=== PATIENT | female | born 1985 | race Caucasian/White ===

== ENCOUNTER 2017-05-02 22:50 | Inpatient (IN) | payer BC, OTHER, SELFPAY ==
[2017-05-02 23:38] VITALS: BMI 33.3
--- NOTE | 2017-05-02 23:56 | PDOC.EVN ---
Event Note - Event Note Event Note: Patient is a 32 YO at 34 weeks and [address] Choe for care, presents for BP checks. Took BP at home and it was ""160/100".Good FM, had AVERY earlier. HX anxiety and took zanax prior to L&D arrival. No visual changes, no RUQ pain. No CTX, no LOF. Review of systems: done and negative. Surgeries: knee Past Med Hx: IBS, anxiety surgery Ob HX: Hx PIH last Allergies: Iodine Physical: BP 151/90, 145/82 NAD Abd soft Cervix deferred Monitor: Cat 1, no ctx Assessment: Possible PIH at 34 weeks, Hx anxiety Plan: 1. serial BPs 2. NST 3. CMP, CBC, urine protein/cr ratio 4. If non-severe, may do outpatient follow up until 37 weeks 5. Follow BPs for now 6. Watch BPs overnight
[2017-05-03 00:27] LABS: #Eosinphils 0.1 thou/uL (0.0-0.7); #Lymphocytes 3.1 thou/uL (1.20-3.40); #Monocytes 0.6 thou/uL (0.11-0.59); #Neutrophils 5.8 thou/uL (1.40-6.50); %Basophils 0.4 % (0.0-1.0); %Eosinophils 1.1 % (0.0-10.0); %Lymphocytes 31.9 % (21.0-51.0); %Monocytes 6.6 % (0.0-10.0); Hematocrit 35.4 % (36.0-47.0); Mean Platelet Volume 9.7 fL (7.4-10.4); White Blood Cell (WBC) Count 9.6 thou/uL (4.8-10.8)
[2017-05-03 00:51] LABS: ALT (SGPT) 22 U/L (8-55); AST (SGOT) 52 U/L (5-34); Alkaline Phosphatase 196 U/L (40-150); Anion Gap 10 mmol/L (10-20); BUN (Urea Nitrogen) 7 mg/dL (7.0-18.7); Bilirubin, Total 0.2 mg/dL (0.2-1.2); Calc. Creatinine Clearance 182 mL/min (70-130); Carbon Dioxide 23 mmol/L (22-29); Chloride 108 mmol/L (98-107); Estimated GFR-MDRD Greater than 90; Globulin 3.2 g/dL (2.4-3.5); Protein, Total 6.2 g/dL (6.0-8.3)
[2017-05-03] MEDS ORDERED: Betamet Acet/Betamet Na Ph 30 MG/5 ML VIAL ONE (01:07)
--- NOTE | 2017-05-03 01:08 | PDOC.LDHP ---
Labor and Delivery H&P Chief complaint: other (Elevated BPs at home) HPI: Please see evtn note written within the last 2 hours as functional H&P.EGA: 34 weeks 3 days Current gestational age (weeks): 34 (3) Dating criteria: last menstrual period Current complications: hypertension Abnormal US findings: No Current medications: other (xanax prn) Allergies/Adverse Reactions: Allergies Allergy/AdvReac Type Severity Reaction Status Date / Time iodine Allergy Severe Rash Verified 05/02/17 23:39 - Physical Exam Vital signs reviewed and normal: yes Abnormal vital signs: 150/90 Heart: RRR Lungs: CTAB Abdomen: gravid FHT: category 1 - Assessment 34 weeks with Urine protein negative, but isolated AST of 52. Creatinine 0.59. - Plan Plan: admit to L&D ([facility] for [facility] as EGA less than 36. Follow BPs. Repeat AST in 6 hours. If persistant abnormal, may require trial of induction for PIH with AST elevation. Dr Cross notified. Cervical exam pending (will have RN perform to reduce her anxiety).)
[2017-05-03] MEDS: Betamet Acet/Betamet Na Ph 30 MG/5 ML VIAL IM SCH (01:21)
[2017-05-03 06:28] LABS: ALT (SGPT) 23 U/L (8-55); AST (SGOT) 56 U/L (5-34); Alkaline Phosphatase 205 U/L (40-150); Anion Gap 12 mmol/L (10-20); BUN (Urea Nitrogen) 6 mg/dL (7.0-18.7); Bilirubin, Total 0.3 mg/dL (0.2-1.2); Calc. Creatinine Clearance 188 mL/min (70-130); Carbon Dioxide 22 mmol/L (22-29); Chloride 109 mmol/L (98-107); Estimated GFR-MDRD Greater than 90; Globulin 3.4 g/dL (2.4-3.5); Protein, Total 6.6 g/dL (6.0-8.3)
--- NOTE | 2017-05-03 06:43 | PDOC.EVN ---
Event Note - Event Note Event Note: This AM repeat AST was 56 (was 532)...stable. BPs nonsevere and even some systolics ay 120s over night. NST Cat 1. Dr Choe to assess patient sometime this morning.
[2017-05-03] MEDS ORDERED: Acetaminophen 325 MG TAB PO PRN (09:50)
[2017-05-03] MEDS: busPIRone HCl 5 MG TAB PO SCH ×2 (09:55→21:11)
--- NOTE | 2017-05-03 11:17 | ULT ---
OB ULTRASOUND: History: Preclampsia. Evaluate growth and SOTERO. Technique: Multiplanar grayscale and color doppler images were obtained in a ultrasound. FINDINGS: There is a single live intrauterine with heart rate of 157 b/m. A limited survey was performed which is unremarkable. Estimated weight is 2458 grams. Average age of the fetus based off today's examination is 34 weeks 5 days. The following measurements were taken: BPD 8.67 cm 35 weeks 0 days HC 31.14 cm 34 weeks 6 days AC 30.46 cm 34 weeks 4 days FL 6.72 cm 34 weeks 4 days SOTERO is 10.4 cm, which is normal. Placenta is anterior in location without focal abnormality. The fetu s is in breech presentation. The cervix is normal in length. IMPRESSION: Single live intrauterine with estimated age of 34 weeks 5 days. POS: [facility]
[2017-05-03] MEDS ORDERED: Zolpidem Tartrate 5 MG TAB PO PRN (13:20)
[2017-05-04] MEDS ORDERED: Betamet Acet/Betamet Na Ph 30 MG/5 ML VIAL IM SCH (00:30)
[2017-05-04] MEDS: Betamet Acet/Betamet Na Ph 30 MG/5 ML VIAL IM SCH (01:15)
[2017-05-04 05:22] LABS: #Lymphocytes 1.9 thou/uL (1.20-3.40); #Monocytes 0.3 thou/uL (0.11-0.59); #Neutrophils 9.9 thou/uL (1.40-6.50); %Basophils 0.1 % (0.0-1.0); %Eosinophils 0.2 % (0.0-10.0); %Lymphocytes 15.9 % (21.0-51.0); %Monocytes 2.2 % (0.0-10.0); Hematocrit 33.7 % (36.0-47.0); Mean Platelet Volume 9.7 fL (7.4-10.4); White Blood Cell (WBC) Count 12.1 thou/uL (4.8-10.8)
[2017-05-04 05:32] LABS: ALT (SGPT) 20 U/L (8-55); AST (SGOT) 44 U/L (5-34); Alkaline Phosphatase 190 U/L (40-150); Bilirubin, Direct 0.1 mg/dL (0.1-0.3); Bilirubin, Total 0.2 mg/dL (0.2-1.2); Calc. Creatinine Clearance 182 mL/min (70-130); Estimated GFR-MDRD Greater than 90; Protein, Total 6.1 g/dL (6.0-8.3)
--- NOTE | 2017-05-04 06:16 | PRG ---
DATE OF SERVICE: 05/03/2017 TIME OF VISIT: 0800 SUBJECTIVE: The patient denies any headache, vision change, or right upper quadrant pain. She has n oted some increased swelling in the last couple of days. She feels good movement, denies any s ymptoms of labor. She has felt very anxious about being admitted for elevated blood pressure s and concern over the baby's well-being. OBJECTIVE: VITAL SIGNS: Blood pressures are mostly mild range 140s/90s. She did have several diastolic reading s in the 100s and 2 systolic readings in the 160s, pulse is in the 70s, respirations 18, temperature 98.2. GENERAL: No acute distress, alert and oriented x3. CARDIAC: Regular rate and rhythm. LUNGS: Clear to auscultation bilaterally. ABDOMEN: Soft, nontender, gravid. EXTREMITIES: Trace pitting lower extremity edema. LABORATORY: Hemoglobin 11.3, hematocrit 35.4, platelets 155, initial AST was 52, on recheck it was 5 6. ALT is within normal limits and creatinine is within normal limits at 0.59. Protein creatinine r atio was negative. ASSESSMENT AND PLAN: This is a 32-year-old G2, P1 at 34 weeks and 2 days with new onset elevated blo od pressures and elevated AST with a history of preeclampsia at term last . The patient has significant anxiety and during these episodes will experience increases in her blood pressure. I magaña ve advised the patient on staying calm and resting as well as addition of BuSpar help with her anxiet y. For now she will remain in the hospital for further blood pressure monitoring and lab trending. She does appear to have preeclampsia, but at this point does not meet criteria for severe features. If she had severe range blood pressures, lab abnormalities or symptoms, then she would be disposition ed for induction of labor. We will obtain a ultrasound for weight SOTERO and presentation. She h as received 1 dose out of 2 for a betamethasone for prematurity and we will collect a GBS. Also, fet al heart tones are monitored. The patient has a normal low baseline of 110-115 with positive acceler ations and category 1 overnight. The patient can be transferred to the floor and go to q. shift any mg.
[2017-05-04] MEDS ORDERED: Prenatal Vitamin 1 TAB PO SCH (09:00)
[2017-05-04] MEDS ORDERED: Lactated Ringer's 1,000 ML IV SCH ×2 (10:43)
[2017-05-04 15:24] VITALS: BP 139/82; TEMP 98.3
--- NOTE | 2017-05-04 16:38 | ULT ---
BIOPHYSICAL PROFILE: 05/04/17 HISTORY: Bradycardia, assess wellbeing. FINDINGS/IMPRESSION: tone - 0 breathing - 2 movement - 2 Amniotic fluid - 2 Total score 6/8. position: Breech. Placenta: Anterior. Amniotic fluid: Adequate. SOTERO recorded at 11.8 cm. heart rate: 112 beats per minute. POS: [facility]
--- NOTE | 2017-05-05 08:32 | PRG ---
DATE OF SERVICE: 05/04/2017 TIME OF VISIT: At 8:00 a.m. and 1:30 p.m. SUBJECTIVE: The patient feels well. She denies any symptoms of preeclampsia. Her swelling has decr eased. She has good movement. Denies any contractions, vaginal bleeding or leakage of fluid. OBJECTIVE: VITAL SIGNS: Overnight, blood pressures were 120s to 130s over 70s, pulse is 75, respirations 16, te mperature 98.3. Since approximately 8:00 a.m., the patient has had some mild range pressures 140s ov er 70s and 80s to 150s over 80s, pulse is in the 90s, respirations 18. GENERAL: No acute distress. CARDIAC: Regular rate and rhythm. LUNGS: Clear to auscultation bilaterally. ABDOMEN: Soft, nontender, gravid. EXTREMITIES: Trace lower extremity edema. [place], this morning the patient had FHTs done by Doppler t hat were noted to be in the 80-90 range. She was subsequently placed on the NST that showed a baseli ne of about 95 with moderate variability and accelerations. She was then transferred over to labor a nd delivery on a stat basis for monitoring and resuscitation. When she got over there, her baseline was 125 with variability and accelerations. The patient continues to have periods of approximately 1 0-15 minutes where the baseline will be low in the 90-100 range with variability and accelerations, n o decelerations and then we will increase to around 110-115 baseline. LABORATORY DATA: This morning, hemoglobin was 11.2, hematocrit 33.7, platelets 161, white count 12.1 , creatinine 0.59. AST is 44, down from 56 yesterday. ASSESSMENT AND PLAN: This is a 32-year-old G2, P1 at 34 weeks and 5 days with mild preeclampsia and with an abnormally low heart rate baseline. The remainder of the strip is reassuring with vari ability and accelerations. I was concerned about the low baseline and consulted maternal speci alist over the phone, Dr. Anais Ward regarding the low baseline and she stated that as long as va riability and accelerations were present, but there was no cause for concern that some babies just ra n a low baseline, it was not necessarily indicative of a cardiac defect or an different defect that n eeds to be looked into. She did recommend BPP and twice weekly testing and therefore, the patient wi ll have a BPP and if this is reassuring and if the remainder of the strip is reassuring, she wi ll dispositioned for discharge with followup on Sunday in the clinic with ultrasound and NST. She magaña s received 2 doses of betamethasone and she will continue to monitor her blood pressures at least twi ce daily, keep a log and has been given strict [facility] warnings for elevated pressures or symptoms to com e to the ER and she will have weekly labs and her endpoint will be 37 weeks or if she develops severe features.
== END 2017-05-04 15:30 | disposition home or self-care (01) | DRG 781 ==
LOC: L&D/OP 22:50 → L&D 05-03 06:26 → 3SW 05-03 13:02 → L&D 05-04 10:10
PROVIDERS: ADMIT Obstetrics & Gynecology; ATTEND Obstetrics & Gynecology
DX: O14.03 Mild to moderate pre-eclampsia, third trimester (principal); F41.9 Anxiety disorder, unspecified; O76 Abnormality in fetal heart rate and rhythm complicating labor and delivery; Z3A.34 34 weeks gestation of pregnancy; O99.343 Other mental disorders complicating pregnancy, third trimester
CPT/HCPCS: 36415; 76816; 76819; 80053; 80076; 82565; 82570; 84156; 85025; J0702

== ENCOUNTER → 2017-05-17 | Day surgery (SDC) | payer OTHER, SELFPAY ==
[2017-05-17 19:05] VITALS: BMI 34.7
[2017-05-17 19:13] VITALS: BP 156/88; TEMP 98.1
[2017-05-17 20:05] LABS: #Basophils 0.1 thou/uL (0.0-0.2); #Eosinphils 0.1 thou/uL (0.0-0.7); #Lymphocytes 3.2 thou/uL (1.20-3.40); #Monocytes 0.6 thou/uL (0.11-0.59); #Neutrophils 8.5 thou/uL (1.40-6.50); %Basophils 0.5 % (0.0-1.0); %Eosinophils 0.6 % (0.0-10.0); %Monocytes 4.5 % (0.0-10.0); %Neutrophils 68.4 % (42.0-75.0); Hemoglobin 12.5 g/dL (12.0-16.0); Mean Corpuscular HGB CONC 33.2 g/dL (32.0-36.0); Mean Corpuscular Hemoglobin 31.2 pg (27.0-31.0); Mean Corpuscular Volume 93.9 fl (81.0-99.0); Mean Platelet Volume 9.4 fL (7.4-10.4); Platelet Count 161 thou/uL (130-400); RBC Distribution Width 12.9 % (11.5-14.5); White Blood Cell (WBC) Count 12.4 thou/uL (4.8-10.8)
[2017-05-17 20:28] LABS: ALT (SGPT) 20 U/L (8-55); AST (SGOT) 44 U/L (5-34); Albumin 3.5 g/dL (3.5-5.0); Alkaline Phosphatase 237 U/L (40-150); Anion Gap 13 mmol/L (10-20); BUN (Urea Nitrogen) 6 mg/dL (7.0-18.7); Bilirubin, Total 0.3 mg/dL (0.2-1.2); Calc. Creatinine Clearance 200 mL/min (70-130); Calcium 9.4 mg/dL (7.8-10.44); Carbon Dioxide 23 mmol/L (22-29); Chloride 107 mmol/L (98-107); Estimated GFR-MDRD Greater than 90; Globulin 3.5 g/dL (2.4-3.5); Glucose 69 mg/dL (70-105); Potassium 4.1 mmol/L (3.5-5.1); Sodium 139 mmol/L (136-145)
== END ==
LOC: L&D/OP 17:42
PROVIDERS: ATTEND Student in an Organized Health Care Education/Training Program
DX: O99.89 Other specified diseases and conditions complicating pregnancy, childbirth and the puerperium (principal); R03.0 Elevated blood-pressure reading, without diagnosis of hypertension; Z3A.00 Weeks of gestation of pregnancy not specified; Z79.82 Long term (current) use of aspirin; Z79.899 Other long term (current) drug therapy; Z91.041 Radiographic dye allergy status
CPT/HCPCS: 36415; 80053; 82570; 84156; 85025; 99285

== ENCOUNTER 2017-05-22 10:18 | Inpatient (IN) | payer OTHER, SELFPAY ==
[2017-05-22] MEDS ORDERED: Promethazine HCl 25 MG/ML VIAL IM PRN ×3 (10:26→17:08)
[2017-05-22] MEDS ORDERED: Ondansetron HCl/PF 4 MG/2 ML Vial IVP PRN ×3 (10:26→17:08)
--- NOTE | 2017-05-22 10:54 | PDOC.LDHP ---
Labor and Delivery H&P Chief complaint: scheduled section HPI: 32yo at 37w2d by LMP here for PCS due to christiano breech presentation and PEC. Pt has been monitoring BP as outpt and denies sx of PIH but BPs will intermittently spike into 160s systolic. Good FM. No VB LOF. Occ ctx. Current gestational age (weeks): 37 Due date: 06/14/17 Dating criteria: last menstrual period Grav: 2 Para: 1 Current complications: preeclampsia without severe features (dx at 34wk) Abnormal US findings: No Past Medical History: anxiety, AVERY Current medications: pre- vitamins, other (magnesium) Previous surgical history: none Allergies/Adverse Reactions: Allergies Allergy/AdvReac Type Severity Reaction Status Date / Time iodine Allergy Severe Rash Verified 05/17/17 19:04 Social history: none - Physical Exam Abnormal vital signs: Severely elevated BP 171/101 initially General: NAD Heart: RRR Lungs: CTAB Abdomen: gravid Extremeties: no edema FHT: category 1 - OB Labs RH: positive Antibody Screen: negative HIV: negative RPR: negative HEPSAg: negative 1 hour GCT: negative GBS: negative Rubella: immune - Assessment L&D Assessment: scheduled primary section - Plan Plan: admit to L&D, to OR for section, informed consent obtained, magnesium for seizure prophylaxis (if evidence of severe features- persistent severe range BP, sx, lab abnormalities.), anesthesia consult for pain management
[2017-05-22 11:05] VITALS: BMI 35.9
[2017-05-22] MEDS ORDERED: Bicitra 30 ML UDCUP PO SCH (11:15)
[2017-05-22] MEDS ORDERED: CEFAZOLIN/Water 2 GM/20 ML SYRINGE SLOW IVP SCH (11:15)
[2017-05-22] MEDS: Lactated Ringer's 1,000 ML IV SCH ×2 (11:26→12:16)
[2017-05-22 11:33] LABS: Hemoglobin 11.9 g/dL (12.0-16.0); Mean Corpuscular HGB CONC 33.1 g/dL (32.0-36.0); Mean Corpuscular Volume 93.7 fl (81.0-99.0); Mean Platelet Volume 9.8 fL (7.4-10.4); Platelet Count 146 thou/uL (130-400); Red Blood Cell (RBC) Count 3.84 mill/uL (4.20-5.40); White Blood Cell (WBC) Count 10.1 thou/uL (4.8-10.8)
[2017-05-22 11:55] LABS: ALT (SGPT) 17 U/L (8-55); AST (SGOT) 37 U/L (5-34); Alkaline Phosphatase 224 U/L (40-150); Anion Gap 11 mmol/L (10-20); BUN (Urea Nitrogen) 7 mg/dL (7.0-18.7); Bilirubin, Total 0.3 mg/dL (0.2-1.2); Calc. Creatinine Clearance 203 mL/min (70-130); Calcium 8.6 mg/dL (7.8-10.44); Carbon Dioxide 24 mmol/L (22-29); Chloride 108 mmol/L (98-107); Estimated GFR-MDRD Greater than 90; Globulin 2.8 g/dL (2.4-3.5); Glucose 79 mg/dL (70-105); Potassium 4.5 mmol/L (3.5-5.1); Protein, Total 5.8 g/dL (6.0-8.3); Sodium 138 mmol/L (136-145)
[2017-05-22 12:13] LABS: Syphilis Antibody Nonreactive (Nonreactive); Syphilis Antibody Index 0.04 S/CO (<1.00 Non-Reactive)
[2017-05-22 12:34] LABS: HBSAg Index 0.17 S/CO (0-0.99); Hep B Surf Ag Non-Reactive S/CO (NonReactive)
[2017-05-22] MEDS ORDERED: Morphine PF 1 MG/ML SYR ONE (13:10)
[2017-05-22] MEDS ORDERED: Oxytocin 10 UNITS/ML VIAL ONE (13:10)
[2017-05-22] MEDS ORDERED: ePHEDrine/0.9% NaCl/PF SYRINGE 50 mg/10 ml ONE ×2 (13:11→17:22)
[2017-05-22] MEDS ORDERED: PHENYLEPHRINE-NS 100 MCG/ML 10 ML SYRINGE ONE ×2 (13:11→17:22)
[2017-05-22] MEDS ORDERED: Ondansetron HCl/PF 4 MG/2 ML Vial ONE ×2 (14:24→17:22)
[2017-05-22] MEDS ORDERED: Ketorolac Tromethamine 30 MG/ML VIAL ONE ×2 (14:24→17:22)
[2017-05-22] MEDS ORDERED: Dexamethasone 4 mg/ml Vial ONE (14:24)
[2017-05-22] MEDS ORDERED: Lidocaine 2% PF 5 ML VIAL ONE (14:25)
[2017-05-22] MEDS ORDERED: Lidocaine 1% (PF) 30 ML VIAL ONE (14:25)
[2017-05-22] MEDS ORDERED: Fentanyl 100 MCG/2 ML VIAL ONE (14:51)
[2017-05-22] MEDS ORDERED: diphenhydrAMINE 50 MG/ML VIAL IVP PRN (15:24)
[2017-05-22] MEDS ORDERED: Naloxone HCl 0.4 mg/ml Vial IVP PRN ×2 (15:24)
[2017-05-22] MEDS ORDERED: Eucerin (Mineral Oil/Petrolatum,White) 30 gm Jar TOP PRN (15:24)
[2017-05-22] MEDS ORDERED: Naloxone HCl 0.4 mg/ml Vial IV PRN (15:24)
[2017-05-22] MEDS ORDERED: Promethazine HCl 25 MG SUPP PR PRN (15:24)
[2017-05-22] MEDS ORDERED: Communication Order-Pharmacy FS SCH (15:30)
[2017-05-22] MEDS ORDERED: LR / Pitocin 40 units/1000 ml 1,000 ML ONE ×2 (16:03→21:49)
[2017-05-22] MEDS ORDERED: Promethazine HCl 25 MG/ML VIAL ONE (16:37)
[2017-05-22] MEDS ORDERED: Meperidine HCl/PF 25 MG/ML VIAL ONE (16:55)
[2017-05-22] MEDS: Meperidine HCl/PF 25 MG/ML VIAL SLOW IVP PRN ×3 (16:58→23:54)
[2017-05-22] MEDS ORDERED: Bisacodyl 10 MG SUPP PR PRN (17:08)
[2017-05-22] MEDS ORDERED: Lanolin Ointment 7 GM TUBE TOP PRN (17:08)
[2017-05-22] MEDS ORDERED: diphenhydrAMINE 25 MG CAP PO PRN (17:08)
[2017-05-22] MEDS ORDERED: Acetaminophen 325 MG TAB PO PRN (17:08)
[2017-05-22] MEDS ORDERED: Dexamethasone 20 MG/5 ML VIAL ONE (17:22)
[2017-05-22] MEDS ORDERED: Meperidine HCl/PF 25 MG/ML VIAL SLOW IVP PRN (18:48)
--- NOTE | 2017-05-22 19:12 | ADD-OP ---
ADDENDUM I was present and scrubbed to assist the uncomplicated primary for breech with Dr. Tita Choe. Please see her full note for details.
[2017-05-22] MEDS: Ketorolac Tromethamine 30 MG/ML VIAL IVP PRN (21:09)
[2017-05-23] MEDS: Docusate Calcium (SURFAK) 240 MG CAP PO SCH ×3 (00:09→22:03)
[2017-05-23] MEDS: Ketorolac Tromethamine 30 MG/ML VIAL IVP PRN (04:05)
[2017-05-23 06:18] LABS: Hemoglobin 10.7 g/dL (12.0-16.0); Mean Corpuscular HGB CONC 33.1 g/dL (32.0-36.0); Mean Corpuscular Hemoglobin 31.1 pg (27.0-31.0); Mean Platelet Volume 9.7 fL (7.4-10.4); Platelet Count 140 thou/uL (130-400); RBC Distribution Width 12.9 % (11.5-14.5); Red Blood Cell (RBC) Count 3.45 mill/uL (4.20-5.40); White Blood Cell (WBC) Count 15.4 thou/uL (4.8-10.8)
[2017-05-23] MEDS: HYDROcodone/Acetaminophen 5/325 mg Tablet PO PRN ×5 (08:20→20:36)
[2017-05-23] MEDS: Prenatal Vitamin 1 TAB PO SCH (08:20)
[2017-05-23] MEDS: Ferrous Sulfate 325 MG TAB PO SCH ×2 (08:20→17:18)
--- NOTE | 2017-05-23 09:33 | PDOC.PP ---
Post Progress Note Post Day #: 1 PO intake tolerated: yes Flatus: yes Ambulation: yes Vital Signs (12 hours) Temp Pulse Resp BP 05/23/17 07:55 98.0 F 61 18 129/72 05/23/17 07:45 98.0 F 61 18 05/23/17 04:30 98.2 F 63 20 05/22/17 23:40 97.6 F 67 20 154/79 H 05/22/17 22:20 77 18 131/80 Weight Weight 190 lb - Physical Examination General: NAD Cardiovascular: RRR Respiratory: non-labored breathing Abdominal: no distention, appropriately TTP Fundus firm & at: umb-2 Extremities: negative homans (B) Skin: CS incision dry & intact Neurological: no gross focal deficits Psychiatric: normal affect Result Diagrams: 05/23/17 05:50 05/22/17 11:21 Additional Labs: Post Labs Blood Type O POSITIVE 05/22/17 11:21 Hep Bs Antigen Non-Reactive S/CO (NonReactive) 05/22/17 11:21 (1) Breech presentation, delivered, current hospitalization Code(s): O32.1XX0 - MATERNAL CARE FOR BREECH PRESENTATION, UNSP Status: Acute (2) delivery delivered Code(s): O82 - ENCOUNTER FOR DELIVERY WITHOUT INDICATION Status: Acute (3) Preeclampsia Code(s): O14.90 - UNSPECIFIED PRE-ECLAMPSIA, UNSPECIFIED TRIMESTER Status: Acute Qualifiers: Trimester: third trimester Qualified Code(s): O14.93 - Unspecified pre- eclampsia, third trimester - Assessment/Plan VSSAF, BP intermittently mild, no sx PIH. If persistently mild range will start procardia. Hgb appropriate postop, mild anemia due to surgical blood loss. No sx anemia, cont PNV. Meeting appropriate milestones, routine advances Rh pos, RImm Cont postop care.
--- NOTE | 2017-05-23 09:52 | OP ---
DATE OF PROCEDURE: 05/22/2017 PREOPERATIVE DIAGNOSES: 1. Intrauterine at 37 weeks and 2 days. 2. Breech presentation. 3. Mild preeclampsia. POSTOPERATIVE DIAGNOSES: 1. Intrauterine at 37 weeks and 2 days. 2. Breech presentation. 3. Mild preeclampsia. PROCEDURE: Primary low transverse section via Pfannenstiel skin incision. ANESTHESIA: Spinal. ATTENDING SURGEON: Tita Choe M.D. PATCH WORKER: Vani Hayward M.D. COMPLICATIONS: None. PATHOLOGY: None. ESTIMATED BLOOD LOSS: 600 mL INTRAVENOUS FLUIDS: One liter crystalloid. URINE OUTPUT: 200 mL of clear urine. DRAINS: Robles catheter. FINDINGS: A female , christiano breech presentation, clear amniotic fluid, Apgars of 9 and 9, weigh ing 5 pounds 8 ounces. Normal uterus, ovaries and tubes bilaterally. OPERATIVE TECHNIQUE: The patient was taken to the operating room where spinal anesthesia was obtaine d without difficulty. The patient was prepped and draped in sterile fashion in dorsal supine positio n with a leftward tilt. After ensuring adequacy of anesthesia, a Pfannenstiel skin incision was made with a knife and carried down to the underlying subcutaneous tissue with the Bovie. The fascia was nicked in the midline with the Bovie and carried laterally with the Farrar scissors. The superior aspe ct of the fascia was tented with 2 Kochers and dissected off the rectus with the Mayos. The inferior aspect of the fascia was tented with 2 Kochers and dissected off the rectus with the Mayos down to t he pubic symphysis. The peritoneum was bluntly entered into and manually retracted. The Carter O re tractor was replaced and the lower uterine segment was incised in a transverse fashion and extended w ith the Ele maneuver. The breech was brought to the hysterotomy and delivered atraumatically withou t difficulty using standard breech maneuvers. The infant was bulb suctioned. Delayed cord clamping was performed. The 's cord was clamped. Infant handed to awaiting jesus team. Cord blood was o btained and placenta was allowed to spontaneously deliver. The uterus was cleared of all clots and d ebris and repaired with a #1 Monocryl in a running locking fashion with excellent hemostasis noted. The pelvis was irrigated and suctioned and hysterotomy was again noted to be hemostatic. Carter retr actor was removed. The adnexa were evaluated and noted to be within normal limits. The rectus muscl es were examined and noted to be hemostatic. The peritoneum was then placed over the abdominal incis ion and the fascia was reapproximated with an 0 PDS x2 sutures with excellent reapproximation. The s ubcutaneous tissue was irrigated and cauterized of any bleeders and reapproximated with 2-0 plain gut in a running fashion. Skin was closed with 4-0 Monocryl in subcuticular fashion. Dermabond was pamela lied. The patient tolerated the procedure well. Sponge, lap, and needle counts were correct x2. Th e patient was taken to recovery room in stable condition. Patient received Ancef 2 grams prior to th e procedure.
[2017-05-23] MEDS: Ibuprofen 800 MG TAB PO SCH ×2 (14:00→22:03)
[2017-05-23] MEDS: Simethicone Chewable 80 MG TAB PO PRN ×2 (16:18→22:03)
[2017-05-24] MEDS: HYDROcodone/Acetaminophen 7.5/325 mg Tablet PO PRN ×6 (00:34→20:33)
[2017-05-24] MEDS: Ibuprofen 800 MG TAB PO SCH ×3 (05:36→21:35)
[2017-05-24] MEDS: Docusate Calcium (SURFAK) 240 MG CAP PO SCH ×2 (08:42→20:33)
[2017-05-24] MEDS: Prenatal Vitamin 1 TAB PO SCH (08:42)
[2017-05-24] MEDS: Ferrous Sulfate 325 MG TAB PO SCH (09:55)
--- NOTE | 2017-05-24 13:01 | PDOC.PP ---
Post Progress Note Post Day #: 2 PO intake tolerated: yes Flatus: yes Ambulation: yes Vital Signs (12 hours) Temp Pulse Resp BP BP 05/24/17 12:00 97.8 F 70 18 159/88 H 05/24/17 07:40 97.9 F 62 18 135/76 05/24/17 04:30 98 F 69 16 137/72 Weight Weight 190 lb - Physical Examination General: NAD Cardiovascular: RRR Respiratory: non-labored breathing Abdominal: no distention, appropriately TTP Fundus firm & at: umb Skin: CS incision dry & intact Neurological: no gross focal deficits Psychiatric: normal affect Result Diagrams: 05/23/17 05:50 05/22/17 11:21 Additional Labs: Post Labs Blood Type O POSITIVE 05/22/17 11:21 Hep Bs Antigen Non-Reactive S/CO (NonReactive) 05/22/17 11:21 (1) Breech presentation, delivered, current hospitalization Code(s): O32.1XX0 - MATERNAL CARE FOR BREECH PRESENTATION, UNSP Status: Acute (2) delivery delivered Code(s): O82 - ENCOUNTER FOR DELIVERY WITHOUT INDICATION Status: Acute (3) Preeclampsia Code(s): O14.90 - UNSPECIFIED PRE-ECLAMPSIA, UNSPECIFIED TRIMESTER Status: Acute Qualifiers: Trimester: third trimester Qualified Code(s): O14.93 - Unspecified pre- eclampsia, third trimester - Assessment/Plan BP elevated in high mild range, will start procardia xl 30mg daily Pain uncontrolled on norco 7.5 2tab q 4h, if persistent uncontrolled next dose will incr to norco 10/325. Otherwise met all postop milestones. Rhpos RImm Home tomorrow if stable.
[2017-05-24] MEDS ORDERED: NIFEdipine XL 30 MG TAB PO SCH (14:15)
[2017-05-24] MEDS: Simethicone Chewable 80 MG TAB PO PRN (16:23)
[2017-05-25] MEDS: HYDROcodone/Acetaminophen 7.5/325 mg Tablet PO PRN ×4 (00:44→14:30)
[2017-05-25] MEDS: Ibuprofen 800 MG TAB PO SCH ×2 (05:43→12:23)
[2017-05-25] MEDS ORDERED: Labetalol 100 MG TAB PO SCH (09:00)
[2017-05-25] MEDS: Ferrous Sulfate 325 MG TAB PO SCH ×2 (09:09→14:28)
[2017-05-25] MEDS: Prenatal Vitamin 1 TAB PO SCH (10:06)
[2017-05-25] MEDS: Docusate Calcium (SURFAK) 240 MG CAP PO SCH (10:06)
[2017-05-25 11:58] VITALS: BP 139/85; TEMP 97.6
[2017-05-25] MEDS ORDERED: NIFEdipine XL 30 MG TAB PO SCH (12:48)
[2017-05-25] MEDS: Simethicone Chewable 80 MG TAB PO PRN (14:30)
--- NOTE | 2017-05-25 15:24 | PDOC.PP ---
Post Progress Note Post Day #: 3 Subjective: c/o AVERY, feeling weak and tired, hasn't been sleeping well. Pain well controlled. PO intake tolerated: yes Flatus: yes Ambulation: yes Vital Signs (12 hours) Temp Pulse Resp BP BP 05/25/17 11:58 97.6 F 77 20 139/85 05/25/17 10:06 68 05/25/17 08:29 98.2 F 68 20 134/79 05/25/17 07:40 98.2 F 68 20 05/25/17 05:52 97.8 F 68 18 130/77 Weight Weight 190 lb - Physical Examination General: NAD Cardiovascular: RRR Respiratory: non-labored breathing Abdominal: no distention, appropriately TTP Fundus firm & at: umb Skin: CS incision dry & intact Neurological: no gross focal deficits Psychiatric: normal affect Result Diagrams: 05/23/17 05:50 05/22/17 11:21 Additional Labs: Post Labs Blood Type O POSITIVE 05/22/17 11:21 Hep Bs Antigen Non-Reactive S/CO (NonReactive) 05/22/17 11:21 (1) Breech presentation, delivered, current hospitalization Code(s): O32.1XX0 - MATERNAL CARE FOR BREECH PRESENTATION, UNSP Status: Acute (2) delivery delivered Code(s): O82 - ENCOUNTER FOR DELIVERY WITHOUT INDICATION Status: Acute (3) Preeclampsia Code(s): O14.90 - UNSPECIFIED PRE-ECLAMPSIA, UNSPECIFIED TRIMESTER Status: Acute Qualifiers: Trimester: third trimester Qualified Code(s): O14.93 - Unspecified pre- eclampsia, third trimester - Assessment/Plan VSSAF AVERY likely result of sleep deprivation vs procardia yesterday (sx started right after taking this med). Rec eating and resting and seeing if pt feels ready for DC. Not concerned for infectious process. Warnings given. BP improved on BP meds, will cont outpt, check BP at home, FU 1 wk for BP check Met all milestones. Rx ibuprofen, labetalol, norco 7.5/325 Rh pos RImm DC home if feeling better
== END 2017-05-25 17:53 | disposition home or self-care (01) | DRG 766 ==
LOC: L&D 10:18 → 3SW 21:28
PROVIDERS: ADMIT Student in an Organized Health Care Education/Training Program; ATTEND Student in an Organized Health Care Education/Training Program
PROC: 10D00Z1 Extraction of Products of Conception, Low, Open Approach (ICD-10-PCS; principal; 2017-05-22)
DX: O14.04 Mild to moderate pre-eclampsia, complicating childbirth (principal); O32.1XX0 Maternal care for breech presentation, not applicable or unspecified; Z3A.37 37 weeks gestation of pregnancy; Z37.0 Single live birth
CPT/HCPCS: 36415; 51702; 76815; 80053; 85027; 86780; 86850; 86900; 86901; 87340; J1100; J1885; J2001; J2175; J2274; J2405; J2550; J2590; J3010